=== PATIENT | female | born 1945 | race Caucasian/White ===

== ENCOUNTER 2020-02-26 17:49 | Emergency (ER) | payer MEDICARE, OTHER ==
--- NOTE | 2020-02-26 18:45 | NUR ---
PROXY CHARTED FOR LISA Artis, PT. NIL X 1 WHEN CALLED FOR TRIAGE.
--- NOTE | 2020-02-26 19:40 | NUR ---
NOT IN LOBBY X2
--- NOTE | 2020-02-26 19:47 | NUR ---
NOT IN LOBBY X3
== END 2020-02-26 19:49 | disposition left against medical advice (07) ==
LOC: ED 19:40
DX: R68.89 Other general symptoms and signs (principal); Z53.21 Procedure and treatment not carried out due to patient leaving prior to being seen by health care provider